=== PATIENT | male | born 1945 | race Caucasian/White ===

== ENCOUNTER 2017-03-21 10:59 | Day surgery (SDC) | payer MEDICARE ==
[~2017-03-21 10:59] MED LIST: GENTAMICIN SULFATE 80 MG in DEXTROSE 5 % IN WATER 100 ML IV PRN; RINGERS SOLUTION,LACTATED 1,000 ML IV PRN; metroNIDAZOLE/SODIUM CHLORIDE 500 MG/100 ML BAG IV PRN
--- OUTSIDE RECORDS SUMMARY | 2017-03-21 11:02 | XMS REPORT | Continuity of Care Document ---
:1945 Author Organization [facility] ([facility]) Address [place] [address] Phone [phone] Care Team Providers Name Role Phone Ralph Roman Primary Care Provider [phone] Source Comments This disclosure is being made pursuant to the Care Everywhere program, applicable federal and state laws, and may not contain all informaitonavailable regarding this patient.[facility] ([facility]) Active Allergies and Adverse Reactions Allergen Noted Date Severity Reactions Comments Hydrochlorothiazide Urticaria (Hives),Pruritus Current Medications Prescription Sig. Disp. Refills Start Date End Date Status nitroglycerin place 0.4 mg under the Active (NITROSTAT) 0.4 mg SL tongue every 5 minutes tablet as needed for Chest pain. aspirin 325 mg EC take 325 mg by mouth Active tablet daily. buPROPion take 1 Tab by mouth 2 60 Tab 1 07/03/2009 Active (WELLBUTRIN-SR) 150 times daily for 30 mg SR tablet days. Indications: Smoking Cessation felodipine (PLENDIL) take 1 Tab by mouth 30 Tab 11 07/03/2009 Active 10 mg tablet daily for 30 days. Indications: Hypertension metoPROLol take 1 Tab by mouth 2 60 Tab 11 07/03/2009 Active (LOPRESSOR) 25 mg times daily. tablet Indications: Hypertension, Myocardial Reinfarction Prevention lisinopril (PRINIVIL) take 1 Tab by mouth 30 Tab 11 12/13/2009 Active 20 mg tablet daily. Indications: Hypertension lovaSTATIN (MEVACOR) take 1 Tab by mouth 30 Tab 11 12/13/2009 Active 40 mg tablet every evening. Indications: Mixed Hyperlipidemia Active Problems Problem Noted Date Other alteration of consciousness 03/03/2009 Other physical therapy 11/21/2008 Coronary atherosclerosis of unspecified type of vessel, ramona or graft 2007 Senile osteoporosis 09/09/2008 Special screening for malignant neoplasms, colon 07/24/2006 Pure hypercholesterolemia 10/18/2005 Unspecified essential hypertension 10/18/2005 Lumbago 10/18/2005 Immunizations Name Dates Previously Given Next Due Influenza, unspecified 09/09/2008,10/18/2005 Pneumococcal Polysaccharide, PPSV23 (Pneumovax 23) 2008 Td, adsorbed adult PF 07/24/2006 Zoster, live (Zostavax) 2008 Social History Tobacco Use Types Packs/Day Years Used Date Current Every Day Smoker 1.5 Alcohol Use Drinks/Week oz/Week Comments No Last Filed Vital Signs Vital Sign Reading Time Taken Blood Pressure 155/71 07/03/2009 10:33 AM CDT Pulse 60 07/03/2009 10:33 AM CDT Temperature 36.1 C (97 F) 07/03/2009 10:33 AM CDT Respiratory Rate 16 07/03/2009 10:33 AM CDT Height 1.69 m (5' 6.53") 07/03/2009 10:33 AM CDT Weight 74.2 kg (163 lb 9.3 oz) 07/03/2009 10:33 AM CDT Body Mass Index 25.98 07/03/2009 10:33 AM CDT Oxygen Saturation - - Plan of Care Health Maintenance Due Date Last Done Comments Hepatitis B Vaccine (1 of 3 1945 - Primary Series) Tdap Vaccine 1956 Pneumococcal Vaccine (1 of 2 2009 2008 - PCV13) Prostate Cancer Screening 09/09/2009 09/09/2008, Additional history exists 06/19/2007, 06/19/2007 Lipid Disorder Screening 07/03/2014 07/03/2009, Additional history exists 09/09/2008, 06/19/2007 Influenza Vaccine: Seasonal 06/17/2016 09/09/2008, (#1) 10/18/2005 Td Vaccine 07/24/2016 07/24/2006 Colonoscopy 09/12/2016 09/12/2006 Zoster Vaccine Completed 2008 Results from Last 3 Months Not on file
[2017-03-21] MEDS ORDERED: RINGERS SOLUTION,LACTATED 1,000 ML IV ONE (11:35)
[2017-03-21 14:04] VITALS: BP 138/55
== END 2017-03-21 11:00 | disposition home or self-care (01) ==
LOC: AMB 10:59
PROVIDERS: ATTEND Urology
PROC: 0V903ZX Drainage of Prostate, Percutaneous Approach, Diagnostic (ICD-10-PCS; principal; 2017-03-21 12:00)
DX: C61 Malignant neoplasm of prostate (principal); I10 Essential (primary) hypertension; F17.210 Nicotine dependence, cigarettes, uncomplicated; Z68.28 Body mass index [BMI] 28.0-28.9, adult